=== PATIENT | female | born 1950 | race Caucasian/White ===

== ENCOUNTER → 2017-01-17 | Outpatient (CLI) | payer OTHER, MEDICARE | LOC: BMCIMAGING 09:01 | PROVIDERS: ATTEND Obstetrics & Gynecology Hospice and Palliative Medicine | DX: Z12.31 Encounter for screening mammogram for malignant neoplasm of breast (principal); Z80.3 Family history of malignant neoplasm of breast | CPT/HCPCS: G0202 ==

== ENCOUNTER → 2017-01-18 | Outpatient (CLI) | payer OTHER, MEDICARE | LOC: BMCIMAGING 09:24 | PROVIDERS: ATTEND Internal Medicine | DX: M25.552 Pain in left hip (principal) ==